=== PATIENT | female | born 1945 | race Caucasian/White ===

== ENCOUNTER 2020-08-17 15:14 | Outpatient (CLI) | payer MEDICARE, OTHER, SELFPAY ==
--- NOTE | ~2020-08-17 | XR_ITS ---
EXAMINATION: XR lumbar spine 2-3V DATE: 08/17/2020 15:40 INDICATION: Right leg pain. Right hip pain. TECHNIQUE: 3 views of lumbar spine were obtained. COMPARISON: None. FINDINGS: There is 6 degrees dextrocurvature of thoracolumbar spine. There is 5 mm anterolisthesis of L3 on L4. Vertebral body heights are normal. There is mildly decreased disc height at L3-L4 and L4-L 5 and severely decreased disc height at L5-S1. There is multilevel severe facet joint osteoarthritis in lower lumbar spine. IMPRESSION: 1. Severe lumbar spondylosis. Reviewed, dictated and finalized at location A.
--- NOTE | ~2020-08-17 | XR_ITS ---
EXAMINATION: XR sacroiliac joints min 3V DATE: 08/17/2020 15:40 INDICATION: Right hip and leg pain. TECHNIQUE: 3 views of the sacral iliac joints were obtained. COMPARISON: None. FINDINGS: Bone alignment is normal. There is severe lower lumbar spondylosis. There is mild osteoarth ritis of the hips. The sacroiliac joints are normal. IMPRESSION: 1. Normal sacroiliac joints. 2. Mild osteoarthritis of the hips. Reviewed, dictated and finalized at location A.
== END 2020-08-17 15:15 | disposition home or self-care (01) ==
LOC: ANHIMG 15:22
PROVIDERS: PCP Internal Medicine; Visit Provider Internal Medicine
DX: M47.816 Spondylosis without myelopathy or radiculopathy, lumbar region (principal); M16.0 Bilateral primary osteoarthritis of hip
CPT/HCPCS: 72100; 72202

== ENCOUNTER 2020-10-04 06:42 | Outpatient (CLI) | payer MEDICARE, OTHER, SELFPAY ==
--- NOTE | ~2020-10-04 | MR_ITS ---
EXAMINATION: MR lumbar spine wo/w con DATE: 10/04/2020 08:33 INDICATION: Lumbar radiculopathy. TECHNIQUE: Magnetic resonance imaging (MRI) of the lumbar spine was performed without and with 10 mL MultiHance intravenous contrast. Sequences included sagittal T2-weighted FSE, sagittal T2-weighted FS FSE, and sagittal and axial T1-weighted FSE. Postcontrast sequences included axial T2-weighted FSE a nd axial and sagittal T1-weighted FS FSE. COMPARISON: Lumbar spine radiographs 08/17/2020 FINDINGS: There is 5 degrees dextrocurvature of thoracolumbar spine. There is 4 mm anterolisthesis of L3 on L4. Vertebral body heights are normal. There is mildly decreased disc height at L3-L4 and georgette rely decreased disc height at L5-S1. The distal spinal cord signal intensity is normal. The conus med ullaris is at T12-L1. 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 The following disc levels are specifically discus sed: L1-L2: The disc does not extend beyond the endplate margin. There is moderate bilateral facet joint o steoarthritis. There is no neural foraminal stenosis. There is no central canal stenosis. L2-L3: The disc is bulging. There is severe right and moderate left facet joint osteoarthritis. There is mild bilateral neural foraminal stenosis. There is no central canal stenosis. L3-L4: The disc does not extend beyond the endplate margin. There is severe bilateral facet joint ost eoarthritis. There is mild bilateral neural foraminal stenosis. There is no central canal stenosis. L4-L5: The disc is bulging and has an annular fissure. There is moderate bilateral facet joint osteoa rthritis. There is mild bilateral neural foraminal stenosis. There is mild central canal stenosis. L5-S1: The disc is bulging. There is severe right and moderate left facet joint osteoarthritis. There is mild bilateral neural foraminal stenosis. There is mild central canal stenosis. IMPRESSION: 1. Severe lower lumbar spondylosis. Reviewed, dictated and finalized at location A.
[2020-10-04 07:22] LABS: Estimated Glomerular Filt Rate > 60
== END 2020-10-04 06:43 | disposition home or self-care (01) ==
LOC: ANHIMG 06:43
PROVIDERS: PCP Internal Medicine; Visit Provider Internal Medicine
DX: M25.551 Pain in right hip (principal); M54.16 Radiculopathy, lumbar region; M47.816 Spondylosis without myelopathy or radiculopathy, lumbar region
CPT/HCPCS: 72158; A9577